=== PATIENT | male | born 1950 | race Caucasian/White ===

== ENCOUNTER 2018-05-19 17:39 | Inpatient (IN) | payer OTHER, MEDICAID ==
[~2018-05-19] VITALS: Ht 162.6 cm; Wt 71.2 kg
--- NOTE | 2018-05-19 23:30 | NUR ---
ADMITTED NOTES: ADMITTED THIS 67 Y/O MALE. PT IS ON 5150 HOLD FOR DTS, GD. PT CAME FROM [facility]. PER HIS WRINGER AND SETTER WHO SAW HIM AND NOTICED THAT HE WAS NOT MAKING SENSE, WHEN HE NORMALLY MAKES MORE SENSE. PT IS ACTING OUT AND CONFUSED. V/S WNL. NO COMPLAIN OF PAIN/DISCOMFORT. NO ACUTE DISTRESS NOTED. UPON FACE TO FACE ASSESSMENT. PATIENT IS ALERT ORIENTED X1, CONFUSED, DISORIENTED, DISORGANIZED. AMBULATORY WITH WALKER. FALL PRECAUTIONS IMPLEMENTED AT ALL TIMES. PATIENT IS UNCOOPERATIVE, CONFUSED, HYPERVERBAL, NEEDS FREQUENT REDIRECTION. DENIES SI/HI AT THIS TIME. PT REFUSED SKIN/BODY ASSESSMENT. BELONGINGS WERE INVENTORIED AND CHECKED FOR CONTRABAND. PUT IT IN SAFE/LOCKED CABINET. PATIENT IS UNDER THE PSYCHIATRIC CARE OF DR. KASPER AND MEDICAL CARE OF DR. JAIME. BOTH DOCTORS AWARE OF THE ADMISSION. MRSA DONE. BED LOCKED AND PLACED ON LOWEST POSITION FOR SAFETY. WILL CONTINUE TO MONITOR Q15 MINS. TO MAINTAIN SAFETY.
[2018-05-20] MEDS ORDERED: ACETAMINOPHEN 325 MG TABLET PO PRN
[2018-05-20] MEDS ORDERED: MAGNESIUM HYDROXIDE 30 ML UDC PO PRN
[2018-05-20] MEDS ORDERED: TEMAZEPAM 7.5 MG CAPSULE PO PRN
[2018-05-20] MEDS ORDERED: MAG HYDROX/AL HYDROX/SIMETH 30 ML UDC PO PRN
[2018-05-20] MEDS ORDERED: LEVE500T9 PO (00:11)
[2018-05-20] MEDS ORDERED: QUET100T PO (00:11)
[2018-05-20] MEDS ORDERED: AMLO5TAB7 PO (00:11)
[2018-05-20] MEDS ORDERED: FAMO-131 PO (00:11)
[2018-05-20] MEDS ORDERED: ARIP15TA3 PO (00:11)
[2018-05-20] MEDS ORDERED: ASPI-605 PO (00:11)
[2018-05-20 00:24] VITALS: BP 150/92
--- NOTE | 2018-05-20 05:40 | NUR ---
PAGED DR. GARCIA FOR MED RECON. AWAITING TO CALLBACK. WILL ENDORSE TO NEXT SHIFT NURSE FOR FOLLOW UP.
[2018-05-20 08:23] VITALS: BP 151/90
[2018-05-20] MEDS ORDERED: ASPI-1152 PO (09:05)
--- NOTE | 2018-05-20 10:45 | NUR ---
MONTANA attempted to call number [phone] listed on pts face sheet. Voice tone stated, "this number is not taking phone calls at this time."
--- NOTE | 2018-05-20 11:08 | NUR ---
INITIAL DISCHARGE PLAN: Patient may need placement and may discharge home to [address] [place] [address], [id number] . SW will help form a safe and proper discharge in collaboration with pt and MD.
[2018-05-20] MEDS: LEVETIRACETAM (250 MG) 250 MG TABLET PO SCH ×2 (13:32→21:23)
[2018-05-20] MEDS: PANTOPRAZOLE 40 MG TABLET.DR PO SCH (13:32)
[2018-05-20] MEDS: DIVALPROEX SODIUM 250 MG TABLET.DR PO SCH ×2 (13:32→21:22)
--- NOTE | 2018-05-20 14:10 | NUR ---
SW attempted to contact pts son Bradford [phone] and pts daughter Evie [phone]. SW left voicemail's for callback.
[2018-05-20 16:02] VITALS: BP 118/87
[2018-05-20] MEDS: QUETIAPINE FUMARATE 25 MG TABLET PO SCH (17:44)
[2018-05-20 20:00] VITALS: BP 117/78
[2018-05-20] MEDS: QUETIAPINE FUMARATE 100 MG TABLET PO SCH (21:23)
[2018-05-21] MEDS: LORAZEPAM 0.5 MG TABLET PO PRN ×2 (03:09→21:13)
--- NOTE | 2018-05-21 03:09 | NUR ---
PATIENT NOT SLEEPING, ATICAN 0.5 MG CAP PO GIVEN.
[2018-05-21 06:33] LABS: BASOPHILS % (AUTO) 0.5 % (0.0-2.0); HEMATOCRIT 37 % (39-51); HEMOGLOBIN 12.5 g/dL (13.5-17.5); LYMPHOCYTES # (AUTO) 2.3 /CMM (0.8-4.8); MEAN CORPUSCULAR HGB CONC 34 g/dl (31.0-36.0); MEAN CORPUSCULAR VOLUME 95 fL (80-96); MONOCYTES # (AUTO) 0.6 /CMM (0.1-1.30); MONOCYTES % (AUTO) 10.3 % (2.0-12.0); NEUTROPHILS # (AUTO) 2.5 /CMM (1.8-8.9); NEUTROPHILS % (AUTO) 45.2 % (43.0-81.0); PLATELET COUNT (AUTO) 188 /CMM (150-450); RDW COEFFICIENT OF VARIATION 12.4 (11.5-15.0); RED BLOOD CELL COUNT(AUTO) 3.89 MIL/uL (4.5-6.0); WHITE BLOOD COUNT (AUTO) 5.5 K/uL (4.3-11.0)
[2018-05-21 06:47] LABS: ALBUMIN 2.8 g/dL (3.4-5.0); BILIRUBIN,TOTAL 0.6 mg/dL (0.2-1.0); CREATININE 1.7 mg/dL (0.6-1.3); POTASSIUM 3.9 mmol/L (3.5-5.1)
[2018-05-21 06:50] LABS: CHOLESTEROL 144 mg/dL (<200); HDL CHOLESTEROL 30 mg/dL (40-60); LDL 98 mg/dL (0-99); TRIGLYCERIDES 125 mg/dL (30-150)
[2018-05-21 08:00] VITALS: BP 104/67
[2018-05-21] MEDS: QUETIAPINE FUMARATE 25 MG TABLET PO SCH ×2 (09:06→17:13)
[2018-05-21] MEDS: LEVETIRACETAM (250 MG) 250 MG TABLET PO SCH ×2 (09:06→21:13)
[2018-05-21] MEDS: DIVALPROEX SODIUM 250 MG TABLET.DR PO SCH ×2 (09:06→21:13)
[2018-05-21] MEDS: AMLODIPINE BESYLATE 5 MG TABLET PO SCH (09:06)
[2018-05-21] MEDS: ASPIRIN EC 81 MG TABLET.DR PO SCH (09:06)
[2018-05-21] MEDS: PANTOPRAZOLE 40 MG TABLET.DR PO SCH (09:07)
[2018-05-21 16:02] VITALS: BP 131/84
[2018-05-21 20:00] VITALS: BP 113/74
--- NOTE | 2018-05-21 20:33 | NUR ---
GPS/RN-PATIENT IS IN THE DINING ROOM WATCHIMG TV,TALKING,NONSENSICAL AND APPEARS ANXIOUS.TRIED TO DISTRACT ATTENTION BY OFFERING SNACKS AND DIRECTING HIM TO HIS ROOM.ON THE WAY TO HIS ROOM,WITHOUT PROVOCATION HE BITE HIS RIGHT HAND AND SUSTAINED SMALL SKIN TEAR.FIRST AID TREATMENT INITIATED PER HOSPITAL PROTOCOL. ATIVAN 0.5MG. GIVEN ORDERED.WOUND CONSULT ORDERED.
[2018-05-21] MEDS: QUETIAPINE FUMARATE 100 MG TABLET PO SCH (21:13)
[2018-05-22 08:23] VITALS: BP 109/71
[2018-05-22] MEDS: ASPIRIN EC 81 MG TABLET.DR PO SCH (08:49)
[2018-05-22] MEDS: QUETIAPINE FUMARATE 25 MG TABLET PO SCH ×2 (08:50→17:50)
[2018-05-22] MEDS: LORAZEPAM 0.5 MG TABLET PO PRN (08:50)
[2018-05-22] MEDS: DIVALPROEX SODIUM 250 MG TABLET.DR PO SCH ×2 (08:50→22:01)
[2018-05-22] MEDS: AMLODIPINE BESYLATE 5 MG TABLET PO SCH (08:50)
[2018-05-22] MEDS: PANTOPRAZOLE 40 MG TABLET.DR PO SCH (08:50)
[2018-05-22] MEDS: LEVETIRACETAM (250 MG) 250 MG TABLET PO SCH ×2 (08:50→22:01)
[2018-05-22 16:00] VITALS: BP 97/52
--- NOTE | 2018-05-22 18:27 | NUR ---
GPS/RN PT MANAGED TO SLIDE UNDER THE GERICHAIR TABLE AND LOWERED HIMSELF ON THE FLOOR IN ACTIVITY ROOM. PT WAS ASSISTED TO THE CHAIR REPORTED NO PAIN, AMBULATORY, NO ACUTE DISTRESS OR SKIN ISSUES NOTED. PT REMAINS CONFUSED BEFORE BUT REDIRECTABLE. CHARGE NURSE DAKOTAH , CONTENT SPECIALIST STAN AND DR WALTERS MADE AWARE. [facility] ANNA [place] CONTACTED NEW ORDERS RECEIVED AND CARRIED OUT. WILL CONTINUE TO MONITOR AND WILL ENDORSE TO ROUNDHOUSE FIRER/FIREMAN ACCORDINGLY. 120/68 R 19 P80 SAT 96% AT THE TIME OF THE INCIDENT
[2018-05-22 20:00] VITALS: BP 107/68
[2018-05-22] MEDS: QUETIAPINE FUMARATE 100 MG TABLET PO SCH (22:01)
[2018-05-22] MEDS: TEMAZEPAM 7.5 MG CAPSULE PO PRN (22:02)
[2018-05-23 06:56] LABS: BASOPHILS % (AUTO) 0.2 % (0.0-2.0); HEMATOCRIT 40 % (39-51); HEMOGLOBIN 13.5 g/dL (13.5-17.5); LYMPHOCYTES # (AUTO) 2.8 /CMM (0.8-4.8); LYMPHOCYTES % (AUTO) 32.2 % (20.0-44.0); MEAN CORPUSCULAR HGB CONC 34 g/dl (31.0-36.0); MEAN CORPUSCULAR VOLUME 95 fL (80-96); MONOCYTES # (AUTO) 0.6 /CMM (0.1-1.30); MONOCYTES % (AUTO) 7.4 % (2.0-12.0); NEUTROPHILS # (AUTO) 5.1 /CMM (1.8-8.9); NEUTROPHILS % (AUTO) 59.2 % (43.0-81.0); PLATELET COUNT (AUTO) 231 /CMM (150-450); RDW COEFFICIENT OF VARIATION 12.5 (11.5-15.0); RED BLOOD CELL COUNT(AUTO) 4.27 MIL/uL (4.5-6.0); WHITE BLOOD COUNT (AUTO) 8.6 K/uL (4.3-11.0)
[2018-05-23 07:17] LABS: CALCIUM, SERUM 9.7 mg/dL (8.5-10.1); CREATININE 1.5 mg/dL (0.6-1.3); MAGNESIUM 1.9 mg/dL (1.8-2.4); PHOSPHORUS 4.1 mg/dL (2.5-4.9); POTASSIUM 3.9 mmol/L (3.5-5.1)
[2018-05-23 08:00] VITALS: BP 137/92
--- NOTE | 2018-05-23 09:59 | NUR ---
UR NOTE: MONTANA faxed clinical review to Luly animal care provider at [facility] P:[phone] ex:[phone] F: [phone] for review.
[2018-05-23] MEDS: ASPIRIN EC 81 MG TABLET.DR PO SCH (10:19)
[2018-05-23] MEDS: LEVETIRACETAM (250 MG) 250 MG TABLET PO SCH ×2 (10:19→20:53)
[2018-05-23] MEDS: PANTOPRAZOLE 40 MG TABLET.DR PO SCH (10:19)
[2018-05-23] MEDS: QUETIAPINE FUMARATE 25 MG TABLET PO SCH ×2 (10:19→16:33)
[2018-05-23] MEDS: DIVALPROEX SODIUM 250 MG TABLET.DR PO SCH ×2 (10:19→20:55)
[2018-05-23] MEDS: AMLODIPINE BESYLATE 5 MG TABLET PO SCH (10:20)
--- NOTE | 2018-05-23 11:06 | NUR ---
MONTANA received a phone call from pts sister Mariya [phone] stating that pts Mother Zoya Ortiz [phone] wants pt discharged to her home [address] [place] [address]. MONTANA informed pts sister that she has been attempting to contact pts children to discuss discharge plan. Pts sister stated she would tell pts children to contact SW to coordinate discharge. Sister also informed SW that this is pts 5th hospitalization in a psych unit.
[2018-05-23 16:00] VITALS: BP 150/110
[2018-05-23] MEDS: LORAZEPAM 0.5 MG TABLET PO PRN (18:37)
--- NOTE | 2018-05-23 18:47 | NUR ---
GPS/RN PATIENT IS ANXIOUS AND EXTREMELY AGITATED, ATTEMPTING TO AWOL AND UNABLE TO TAKE DIRECTION AT THIS TIME. ADMINISTERED ATIVAN 0.5 MG , WILL CONTINUE TO MONITOR.
[2018-05-23 20:35] VITALS: BP 115/57
[2018-05-23] MEDS: QUETIAPINE FUMARATE 100 MG TABLET PO SCH (21:30)
[2018-05-23] MEDS: TEMAZEPAM 7.5 MG CAPSULE PO PRN (22:33)
[2018-05-23 23:00] VITALS: BP 129/70
--- NOTE | 2018-05-24 08:33 | NUR ---
WOUND CARE CONSULT WOUND CARE RECEIVED CONSULT FOR WOUND. WOUND CARE WILL DEFER CONSULT AND ALL TREATMENT PLANS TO PODIATRY AT THIS TIME. PATIENT WITH WILY AT 22. WILL SEE PRN.
[2018-05-24] MEDS: PANTOPRAZOLE 40 MG TABLET.DR PO SCH (08:42)
[2018-05-24] MEDS: DIVALPROEX SODIUM 250 MG TABLET.DR PO SCH ×2 (08:42→21:25)
[2018-05-24] MEDS: ASPIRIN EC 81 MG TABLET.DR PO SCH (08:42)
[2018-05-24] MEDS: LEVETIRACETAM (250 MG) 250 MG TABLET PO SCH ×2 (08:42→21:24)
[2018-05-24] MEDS: AMLODIPINE BESYLATE 5 MG TABLET PO SCH (08:42)
[2018-05-24 08:48] VITALS: BP 123/75
[2018-05-24] MEDS: QUETIAPINE FUMARATE 25 MG TABLET PO SCH ×2 (09:13→16:28)
--- NOTE | 2018-05-24 11:02 | NUR ---
UR NOTE: MONTANA faxed clinical review to Luly complex care nurse at [facility] P:[phone] ex:[phone] F: [phone] for review.
[2018-05-24] MEDS: LORAZEPAM 0.5 MG TABLET PO PRN ×2 (12:33→22:53)
--- NOTE | 2018-05-24 12:33 | NUR ---
[id number]: GAVE ATIVAN 0.5 MG PO UPON PT REQUEST AND WILL CONTINUE TO MONITOR FOR EFFECTIVENESS OF MEDICATION
[2018-05-24 16:00] VITALS: BP 131/58
--- NOTE | 2018-05-24 16:18 | NUR ---
UR NOTE: SW received a phone call from Luly, pet caretaker at [facility] P:[phone] ex:[phone] stating that she was going to request a peer to peer review with psychiatrist and that she would be contacting psychiatrist to schedule it.
[2018-05-24 21:10] VITALS: BP 123/82
[2018-05-24] MEDS: QUETIAPINE FUMARATE 100 MG TABLET PO SCH (21:25)
--- NOTE | 2018-05-25 07:30 | NUR ---
on rounds find pt.resting in room,no complaints.vs stable.
[2018-05-25 08:00] VITALS: BP 131/86
--- NOTE | 2018-05-25 08:16 | NUR ---
MONTANA contacted pts sister Mariya [phone] to coordinate transportation for pts discharge on this present day. Pts will be picking up pt at 2:00pm.
[2018-05-25] MEDS: PANTOPRAZOLE 40 MG TABLET.DR PO SCH (10:19)
[2018-05-25] MEDS: ASPIRIN EC 81 MG TABLET.DR PO SCH (10:19)
[2018-05-25 10:21] VITALS: BP 131/86
[2018-05-25] MEDS: AMLODIPINE BESYLATE 5 MG TABLET PO SCH (10:21)
[2018-05-25] MEDS: LEVETIRACETAM (250 MG) 250 MG TABLET PO SCH (10:22)
[2018-05-25] MEDS: DIVALPROEX SODIUM 250 MG TABLET.DR PO SCH (10:22)
[2018-05-25] MEDS: QUETIAPINE FUMARATE 25 MG TABLET PO SCH (11:05)
--- NOTE | 2018-05-25 14:06 | NUR ---
GPS RN NOTE: MADE CALL TO [facility] FOR MEDICATION PRESCRIPTION TALK TO PHARMACIST, RX DONE. Addendum: 05/25/18 at 1413 by MONICA MCDUFFIE RN [phone]
--- NOTE | 2018-05-25 14:15 | NUR ---
denies suicidal or homicidal ideation.
--- NOTE | 2018-05-25 14:20 | NUR ---
received dc orders from medical md as well as psychiatrist,family here,dc photos taken pt. escorted to lobby by life scientists and family all papers signed.psych meds called to pt's pharm. by pharmacist in charge owner.
--- NOTE | 2018-05-25 15:08 | NUR ---
DISCHARGE NOTE: Pt was discharged at 2:30pm home to [address] [place] [address] via private vehicle. Pt was picked up by Sister Mariya [phone] and transported home. Pts mood was euphoric with congruent affect. Pt denied visual/auditory hallucinations and denied suicidal/homicidal ideations. MONTANA provided pt with a referral to Psychiatrist: Dr. Kandice Zimmerman [address] [facility] [address] [address] and faxed continuing care paperwork for a follow up appointment. MONTANA also provided pt with a referral to Application Consultant: Dr. Shikha Adams [address] [facility] [address] [address] [phone]. The multidisciplinary exitcare form was done, printed, signed, and given to the patient.
--- NOTE | 2018-05-30 14:00 | NUR ---
UR NOTE: MONTANA left voicemail with discharge summary to masood Mauricio, palliative care nurse practitioner at [facility] P:[phone] ex:[phone]
--- NOTE | 2018-05-31 14:30 | NUR ---
UR NOTE: MONTANA faxed discharge summary to Luly healthcare business analyst at [facility] P:[phone] ex:[phone] F: [phone] for review.
== END 2018-05-25 14:30 | disposition home or self-care (01) | DRG 885 ==
LOC: GPS 23:08
PROVIDERS: ADMIT Psychiatry & Neurology Psychiatry; ATTEND Family Medicine
DX: F29 Unspecified psychosis not due to a substance or known physiological condition (principal); N17.0 Acute kidney failure with tubular necrosis; N18.9 Chronic kidney disease, unspecified; F17.210 Nicotine dependence, cigarettes, uncomplicated; G40.909 Epilepsy, unspecified, not intractable, without status epilepticus; L60.3 Nail dystrophy; R74.0 Nonspecific elevation of levels of transaminase and lactic acid dehydrogenase [LDH]; Z73.6 Limitation of activities due to disability; I12.9 Hypertensive chronic kidney disease with stage 1 through stage 4 chronic kidney disease, or unspecified chronic kidney disease; F31.2 Bipolar disorder, current episode manic severe with psychotic features; S91.101A Unspecified open wound of right great toe without damage to nail, initial encounter; X58.XXXA Exposure to other specified factors, initial encounter; Y93.9 Activity, unspecified; Y92.009 Unspecified place in unspecified non-institutional (private) residence as the place of occurrence of the external cause; L84 Corns and callosities
CPT/HCPCS: 36415; 72100-TC; 80048-TC; 80053-TC; 80061-TC; 82550-TC; 82962-TC; 83735-TC; 84100-TC; 85025-TC; 87081-TC